=== PATIENT | female | born 1995 | race Caucasian/White ===

== ENCOUNTER 2023-05-20 14:14 | Outpatient (AMB) | payer OTHER, SELFPAY ==
--- NOTE | 2023-05-20 14:16 | MHC.OFFVIS ---
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
[2023-05-20 14:18] VITALS: BP 110/60; PULSE 88; O2SAT 99; BMI 24.6
--- NOTE | 2023-05-20 14:26 | MHC.OFFVIS ---
Intake Vital Signs 05/20/23 14:18 05/20/23 14:30 Height 5 ft 7 in Weight 157 lb BMI 24.6 24.6 BP 110/60 Blood Pressure Location Rt brachial Pulse 88 Pulse Source Pulse Oximeter Pulse Oximetry (%) 99 Oxygen Delivery Method Room Air Intake Visit Reasons: Pulmonary Nodules Allergies No Known Allergies Allergy (Verified 05/20/23 14:23) Medication List - Last Reconciled 05/20/23 by Richa Gil LPN clonidine HCl 0.1 mg PO DAILY PRN fluoxetine 40 mg PO DAILY levonorgestrel (Mirena) intrauterine HPI Pulmonary Nodules HPI Details Nel is a pleasant 28 year old female, never tobacco smoker, moderate marijuana smoker, with multiple pulmonary nodules. 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 She underwent evaluation with multiple specialists that were unrevealing. She reports frequent use of epinephrine in the past, never requiring intubation. She reports spontaneous resolution and has not had an episode in over a year. She reports having COVID in [address] which revealed multiple bilateral pulmonary nodules. She has had two other scans since, last was 04/2023. Report below. Unfortunately the prior scans are not available as one was performed out of [facility] and the other in [facility]. She is unsure if there has been changes with the nodules. 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 She reportedly underwent multiple TB tests that were negative. She denies any systemic or respiratory symptoms. She denies any family history of respiratory conditions or autoimmune conditions, such as sarcoidosis. She denies any environmental allergies. [facility] Social History (Updated 05/20/23 @ 14:24 by Richa Gil LPN) Patient Tobacco Use Status: Never used Tobacco e-Cigarette/Vaping Use: Never Used Review of Systems Const Denies chills, Denies excessive sweating, Denies fever(s), Denies headache(s) and Denies night sweats Eyes Denies dry eyes, Denies irritation and Denies itchy eyes ENT Reports Normal hearing present, Denies headache(s), Denies nasal congestion, Denies nasal discharge, Denies post nasal drip and Denies sore throat Card Denies chest pain, Denies chest pain at rest, Denies chest pain with activity, Denies claudication, Denies leg edema, Denies dyspnea, Denies dyspnea on exertion, Denies orthopnea and Denies paroxysmal nocturnal dyspnea Resp Denies chest congestion, Denies cough, Denies excessive phlegm production, Denies pain on inspiration, Denies pain with cough, Denies dyspnea, Denies dyspnea on exertion, Denies stridor and Denies wheezing Musc Denies myalgias Neuro Reports Normal hearing present and Denies headache(s) Endo Denies excessive sweating Lior/Lymph Denies lymphadenopathy Aller/Immun Denies itchy eyes, Denies seasonal rhinorrhea and Denies wheezing Physical Exam Vital Signs: Last Vital Signs Pulse 88 05/20/23 14:18 BP 110/60 05/20/23 14:18 Pulse Ox 99 05/20/23 14:18 Oxygen Delivery Method Room Air 05/20/23 14:18 BMI result Body Mass Index 24.6 Const General: cooperative, healthy appearing, comfortable, no acute distress, well developed and alert Orientation/consciousness: patient oriented x3 Limitations: no limitations HEENT Head: Yes normal to inspection, Yes normocephalic and Yes atraumatic Ears: hearing grossly normal bilaterally and external ears normal Eyes General: appearance normal, both eyes and all related structures Eyelids: Yes eyelids normal Sclerae: sclerae normal EOM: EOMs intact bilaterally Neck Neck: Yes normal visual inspection and Yes no lymphadenopathy Lymphatic: no lymphadenopathy noted Chest Chest palpation & inspection: normal inspection of the chest Resp Effort & Inspection: normal respiratory effort, able to speak in complete sentences, no audible wheezes, no cough, no stridor, not tachypneic, no tripod positioning and no use of accessory muscles Auscultation: clear to auscultation bilaterally Cardio Jugular venous distension: no JVD Rate: regular rate Rhythm: regular rhythm Skin Other: warm, dry General skin exam: no rashes or lesions noted Neuro General: patient oriented x3 Cranial nerves: Yes Normal hearing present Cognition (Neuro): normal cognition Gait exam (Neuro): Normal gait present Extrem General: Yes normal to inspection, Yes capillary refill normal, Yes no clubbing, cyanosis or edema and Yes no pedal edema Psych Appearance: grossly normal and well kempt Speech and movement: Normal speech and movement present and Clear speech present Affect: normal affect Attitude: cooperative Thought process: Normal thought process present Thought content: Normal thought content present Insight: Good insight present (Psych) Judgement: Good judgement present (Psych) Results Reviewed Results Reviewed: CT 04/24/23 Assessment & Plan Assessment & Plan (1) Multiple pulmonary nodules: Code(s): R91.8 - Other nonspecific abnormal finding of lung field Plan Nel presents after chest CT revealed multiple bilateral pulmonary nodules, less than 7 mm. She denies any respiratory or systemic symptoms. She denies any smoking history or family history of lung cancer. Will review images from recent CT and attempt to obtain prior CT. Will likely send for labs to evaluate for TB as well as autoimmune disease including sarcoidosis, given prior history of idiopathic angioedema. All questions were answered and patient is in agreement of plan. Will follow up after reviewing with Dr. Angel. Coding Level of Care Code New Pt Level 4 (99067) Diagnoses Multiple pulmonary nodules R91.8
[2023-05-20 14:30] VITALS: BMI 24.6
== END 2023-05-20 14:51 | disposition home or self-care (01) ==
LOC: HO.HPSW 14:14
PROVIDERS: PCP Student in an Organized Health Care Education/Training Program; Referring Provider Student in an Organized Health Care Education/Training Program; Visit Provider Nurse Practitioner Family
DX: R91.8 Other nonspecific abnormal finding of lung field (principal)
CPT/HCPCS: 99204

== ENCOUNTER → 2023-05-20 14:14 | Outpatient (BNVA) | payer OTHER, SELFPAY | PROVIDERS: PCP Student in an Organized Health Care Education/Training Program; Visit Provider Nurse Practitioner Family ==